=== PATIENT | female | born 1970 | race Caucasian/White ===

== ENCOUNTER 2020-09-26 12:01 | Emergency (ER) | payer SELFPAY ==
[~2020-09-26] VITALS: Ht 154.9 cm; Wt 61.2 kg
--- NOTE | 2020-09-26 12:02 | NUR ---
BIBA TAKEN TO BED 4
[2020-09-26 12:05] VITALS: BP 124/91
[2020-09-26] MEDS ORDERED: NACL 0.9% 1,000 ML IV ONE (12:20)
[2020-09-26] MEDS ORDERED: ONDANSETRON 4 MG/2 ML VIAL IVP ONE (12:20)
--- NOTE | 2020-09-26 12:30 | NUR ---
50 YEAR OLD FEMALE COMPLAINS OF NAUSEA, VOMITTING X 22 DAYS. PER PT HER DOCTOR GAVE HER ZOFRAN BUT IT HAS NOT BEEN HELPING REDUCE VOMITTING. PT STATES SHE VOMITTED EARLIER TODAY. PT ALSO COMPLAINS OF LEFT SIDED ABDOMINAL PAIN. PT DENIES BLOOD IN VOMIT, DENIES DIARRHEA. PT AOX4, BREATHING EVEN AND UNLABORED, SKIN WARM AND DRY. BED IN LOWEST POSITION, LOCKED, BED RAIL UPX1. PMH - DENIES ALLERGIES - NKA
[2020-09-26 12:40] LABS: BASOPHILS # (AUTO) 0.1 K/uL (0.00-0.22); BASOPHILS % (AUTO) 0.8 % (0.0-2.0); EOSINOPHILS % (AUTO) 0.4 % (0.0-4.0); HEMATOCRIT 43.9 % (36-48); HEMOGLOBIN 15.3 g/dL (12.0-16.0); LYMPHOCYTES # (AUTO) 1.6 K/uL (2.5-16.5); LYMPHOCYTES % (AUTO) 22.3 % (20.5-51.1); MEAN CORPUSCULAR HEMOGLOBIN 29 pg (27-31); MEAN CORPUSCULAR HGB CONC 35 g/dL (33-37); MEAN CORPUSCULAR VOLUME 83.5 fL (80-94); MONOCYTES # (AUTO) 0.3 K/uL (0.8-1.0); MONOCYTES % (AUTO) 3.6 % (1.7-9.3); NEUTROPHILS # (AUTO) 5.2 K/uL (1.8-7.7); NEUTROPHILS % (AUTO) 72.9 % (42.2-75.2); PLATELET COUNT (AUTO) 242 K/uL (140-450); RED BLOOD CELL COUNT(AUTO) 5.26 MIL/uL (4.20-5.40); RED CELL DISTRIBUTION WIDTH 13.1 % (11.6-13.7); WHITE BLOOD COUNT (AUTO) 7.1 K/uL (4.8-10.8)
[2020-09-26 13:04] LABS: ALBUMIN 3.8 g/dL (3.4-5.0); ANION GAP 19.6 (8-16); CARBON DIOXIDE 18.8 mmol/L (21-32); CREATININE 1.2 mg/dL (0.6-1.3); POTASSIUM 3.4 mmol/L (3.5-5.1); TOTAL BILIRUBIN 0.7 mg/dL (0.0-1.0)
[2020-09-26] MEDS ORDERED: LORazepam 2 MG/ML VIAL IVP ONE (13:10)
--- NOTE | 2020-09-26 13:21 | NUR ---
DARIUS MADE AWARE PT STATES SHE HAD HYSTERECTOMY FOR URINE
[2020-09-26 13:34] LABS: APPEARANCE,URINE CLOUDY (CLEAR); BILIRUBIN,URINE 1+ (NEGATIVE); BLOOD, URINE TRACE-I (NEGATIVE); COLOR,URINE YELLOW (YELLOW); LEUKOCYTE ESTERASE ,URINE NEGATIVE (NEGATIVE); NITRITE, URINE NEGATIVE (NEGATIVE); UGLUCOSE NEGATIVE (NEGATIVE)
[2020-09-26 13:44] LABS: CALCIUM OXALATE CRYSTALS,UR 0-10 /HPF (None Seen); WBC,URINE 0-5 /HPF (0-5)
--- NOTE | 2020-09-26 13:48 | NUR ---
PT ALERT AND AWAKE, BREATHING EVEN AND UNLABORED. NO DISTRESS NOTED.
--- NOTE | 2020-09-26 14:52 | NUR ---
PT ALERT AND AWAKE, BREATHING EVEN AND UNLABORED. NO DISTRESS NOTED.
--- NOTE | 2020-09-26 15:10 | NUR ---
Patient discharged with v/s stable. Written and verbal after care instructions about nausea and vomitting given and explained. Patient alert, oriented and verbalized understanding of instructions. Ambulatory with steady gait. All questions addressed prior to discharge. ID band removed. Patient advised to follow up with PMD. Rx of zofran and bentyl given. Patient educated on indication of medication including possible reaction and side effects. Opportunity to ask questions provided and answered.
[2020-09-26 15:16] VITALS: BP 108/72
== END 2020-09-26 15:10 | disposition home or self-care (01) ==
LOC: MED 12:07
DX: R11.2 Nausea with vomiting, unspecified (principal); E11.9 Type 2 diabetes mellitus without complications; F41.9 Anxiety disorder, unspecified; Z90.49 Acquired absence of other specified parts of digestive tract; Z90.711 Acquired absence of uterus with remaining cervical stump; Z79.899 Other long term (current) drug therapy; Z88.1 Allergy status to other antibiotic agents; Z88.8 Allergy status to other drugs, medicaments and biological substances
CPT/HCPCS: 36415; 74176; 80053; 81001; 83690; 85025; 87086; 96361; 96374; 96375; 99284; J2060; J2405; J7030

== ENCOUNTER 2020-10-02 05:45 | Emergency (ER) | payer SELFPAY ==
--- NOTE | 2020-10-02 05:58 | NUR ---
PT TAKEN TO BED 11
--- NOTE | 2020-10-02 06:00 | NUR ---
50 Y/O FEMALE BIB SELF WITH C/O N/V/D X1 DAY POST TAKING ALLOE VERA REPORTED BY PT FOR CONSTIPATION. REPORTS VOMITING AND DIARRHEA X 30 TIMES ALLTOGETHER. STATES SHE HAS BEEN HAVING THIS ISSUE X 3 MONTHS AGO, SHE ALSO REPORTS COMING IN THIS PAST TUESDAY FOR VOMITING. DENIED HAVING ANY FEVER, SOB OR COUGH. ABD WAS FLAT SOFT AND NON-TENDER. PT PLACED ON GUEST ROOM INSPECTOR, PULSE OXYMETRY, BED LOCKED AND IN LOWEST POSITION. MEDHX: HTN, DM TYPE 2, ASTHMA & ANXIETY ALLX: CEPHALEXIN & CORTISONE
--- NOTE | 2020-10-02 06:00 | NUR ---
Note undone in EDM - 10/02/20 at 0701 by JOHNY 50 Y/O FEMALE BIB SELF WITH C/O N/V/D X1 DAY POST TAKING ALLOE VERA REPORTED BY PT FOR CONSTIPATION. REPORTS VOMITING AND DIARRHEA X 30 TIMES ALLTOGETHER. STATES SHE HAS BEEN HAVING THIS ISSUE X 3 MONTHS AGO, SHE ALSO REPORTS COMING IN THIS PAST TUESDAY FOR VOMITING. DENIED HAVING ANY FEVER, SOB OR COUGH. ABD WAS FLAT SOFT AND NON-TENDER. PT PLACED ON BONSAI TENDER, PULSE OXYMETRY, BED LOCKED AND IN LOWEST POSITION. MEDHX: HTN, DM TYPE 2, ASTHMA & ANXIETY ALLX: PCN
--- NOTE | 2020-10-02 06:00 | NUR ---
IV SITE ESTABLISHED TO [facility] 22 SITE PATENT.
--- NOTE | 2020-10-02 06:10 | NUR ---
Dr. Sood examining patient.
[2020-10-02] MEDS ORDERED: ONDANSETRON 4 MG/2 ML VIAL ONE (06:38)
[2020-10-02] MEDS ORDERED: LORazepam 2 MG/ML VIAL ONE (06:50)
--- NOTE | 2020-10-02 06:55 | NUR ---
PT O2 SAT DECLINING FROM 98% ON RA TO 90%, PT WAS PLACED ON 2 L VIA NC. PT STATES, "I STOP BREATHING WHILE I FALL ASLEEP".
[2020-10-02 06:57] LABS: HEMATOCRIT 46.6 % (36-48); HEMOGLOBIN 16.1 g/dL (12.0-16.0); MEAN CORPUSCULAR HEMOGLOBIN 29 pg (27-31); MEAN CORPUSCULAR HGB CONC 35 g/dL (33-37); MEAN CORPUSCULAR VOLUME 84.1 fL (80-94); PLATELET COUNT (AUTO) 251 K/uL (140-450); RED BLOOD CELL COUNT(AUTO) 5.54 MIL/uL (4.20-5.40); RED CELL DISTRIBUTION WIDTH 13.7 % (11.6-13.7); WHITE BLOOD COUNT (AUTO) 15.4 K/uL (4.8-10.8)
[2020-10-02 06:58] LABS: BASOPHILS # (AUTO) 0.1 K/uL (0.00-0.22); BASOPHILS % (AUTO) 0.4 % (0.0-2.0); EOSINOPHILS % (AUTO) 0.2 % (0.0-4.0); LYMPHOCYTES # (AUTO) 1.3 K/uL (2.5-16.5); LYMPHOCYTES % (AUTO) 8.6 % (20.5-51.1); MONOCYTES # (AUTO) 0.5 K/uL (0.8-1.0); MONOCYTES % (AUTO) 3.5 % (1.7-9.3); NEUTROPHILS # (AUTO) 13.4 K/uL (1.8-7.7); NEUTROPHILS % (AUTO) 87.3 % (42.2-75.2)
--- NOTE | 2020-10-02 07:00 | NUR ---
PT UNABLE TO PROVIDE URINE AT THIS TIME STATES, "I DONT FEEL THE URGE TO GO TO THE BATHROOM AT THIS TIME".
--- NOTE | 2020-10-02 07:00 | NUR ---
REPORT RECEIVED FROM DOMINIK RAIN FOR CONTINUITY OF CARE.
--- NOTE | 2020-10-02 07:08 | NUR ---
ER MD DR. MOURA RE-EVALUATING PT AT BEDSIDE.
--- NOTE | 2020-10-02 07:09 | NUR ---
REPORT GIVEN TO ANITA RAIN FOR CONTINUITY OF CARE.
--- NOTE | 2020-10-02 07:30 | NUR ---
PT UNABLE TO PROVIDE URINE AT THIS TIME STATES, "I DONT FEEL THE URGE TO GO TO THE BATHROOM AT THIS TIME".
--- NOTE | 2020-10-02 07:35 | NUR ---
PT REPORTS DECREASED NAUSEA, LAST EMESIS EPISODE AT 0615 AM, IV 0.9%NS BOLUS INFUSING AT THIS TIME. PT POSITIONED FOR COMFORT, BED LOCKED IN LOWEST POSITION, NO SIGNS OF DISTRESS NOTED.
[2020-10-02 08:20] LABS: CARBON DIOXIDE 20.7 mmol/L (21-32); CREATININE 1.2 mg/dL (0.6-1.3); POTASSIUM 3.7 mmol/L (3.5-5.1)
[2020-10-02 08:21] LABS: ALBUMIN 4.4 g/dL (3.4-5.0)
--- NOTE | 2020-10-02 09:28 | NUR ---
Patient discharged with v/s stable. Written and verbal after care instructions given and explained. Patient alert, oriented and verbalized understanding of instructions. Ambulatory with steady gait. All questions addressed prior to discharge. ID band removed. Patient advised to follow up with PMD. Rx of ZOFRAN, PHENERGAN given. Patient educated on indication of medication including possible reaction and side effects. Opportunity to ask questions provided and answered.
[2020-10-02 09:29] VITALS: BP 132/72
== END 2020-10-02 09:28 | disposition home or self-care (01) ==
LOC: MED 05:45
DX: K52.9 Noninfective gastroenteritis and colitis, unspecified (principal); R19.7 Diarrhea, unspecified; E86.0 Dehydration; F41.9 Anxiety disorder, unspecified; E11.9 Type 2 diabetes mellitus without complications; I10 Essential (primary) hypertension; J45.909 Unspecified asthma, uncomplicated
CPT/HCPCS: 36415; 80053; 81002; 83690; 85025; 99283; J2060; J2405

== ENCOUNTER 2020-12-23 19:04 | Emergency (ER) | payer OTHER ==
[~2020-12-23] VITALS: Ht 157.5 cm; Wt 56.2 kg
[2020-12-23 19:08] VITALS: BP 178/77
--- NOTE | 2020-12-23 19:20 | NUR ---
50 YR OLD FEMALE PRESENTED TO THE ER WITH CC OF HIGH BLOOD PRESSURE. PT STATES HIGH BLOOD PRESSURE STARTED 5PM TODAY AFTER SMOKING 1 CIGARETTE. PT STATES HAVING NAUSEA AFTER SMOKING AND STATED VOMITED WITH NO REDNESS AND NO DISCOLORATION. PT STATES NO VISION PROBLEMS AND NO RINGING OF EARS. PT HEART SOUNDS WNL. PT STATES CURRENTLY HAS NAUSEA. PT WAS PROVIDED EMESIS BAG. PT DENIES OTHER MEDICAL COMPLAINTS. BED LOCKED IN LOWEST POSITION. WILL CONTINUE TO MONITOR. HISTORY- ANXIETY, ASTHMA, DIABETES, HTN ALLERGIES- CORTISONE, REGLAN
--- NOTE | 2020-12-23 19:25 | NUR ---
PATIENT AMBULATED TO BED 8.
--- NOTE | 2020-12-23 19:38 | NUR ---
Pt actively vomitting, emesis bag provided and ERMD made aware.
--- NOTE | 2020-12-23 19:40 | NUR ---
Pt ambulated to restroom w/ steady gait.
[2020-12-23] MEDS ORDERED: ONDANSETRON 4 MG/2 ML VIAL IVP ONE (20:00)
--- NOTE | 2020-12-23 20:08 | NUR ---
ERMD AT BEDSIDE FOR MEDICAL EVALUATION.
[2020-12-23] MEDS ORDERED: FAMOTIDINE 20 MG/2 ML VIAL IVP ONE (20:20)
[2020-12-23] MEDS ORDERED: HALOPERIDOL 5 MG TAB PO SCH (20:20)
--- NOTE | 2020-12-23 20:35 | NUR ---
Blood labs & urine sample collected and handed to Harriett Israel tech.
[2020-12-23 20:45] LABS: APPEARANCE,URINE CLEAR (CLEAR); BILIRUBIN,URINE NEGATIVE (NEGATIVE); BLOOD, URINE NEGATIVE (NEGATIVE); COLOR,URINE YELLOW (YELLOW); LEUKOCYTE ESTERASE ,URINE TRACE (NEGATIVE); NITRITE, URINE NEGATIVE (NEGATIVE); UGLUCOSE NEGATIVE (NEGATIVE)
[2020-12-23 20:45] LABS: BASOPHILS % (AUTO) 0.6 % (0.0-2.0); EOSINOPHILS # (AUTO) 0.1 K/uL (0-0.4); EOSINOPHILS % (AUTO) 1.4 % (0.0-4.0); HEMATOCRIT 41.6 % (36-48); HEMOGLOBIN 14.3 g/dL (12.0-16.0); LYMPHOCYTES % (AUTO) 25.3 % (20.5-51.1); MEAN CORPUSCULAR HEMOGLOBIN 30 pg (27-31); MEAN CORPUSCULAR HGB CONC 34 g/dL (33-37); MEAN CORPUSCULAR VOLUME 86.1 fL (80-94); MONOCYTES # (AUTO) 0.4 K/uL (0.8-1.0); MONOCYTES % (AUTO) 4.5 % (1.7-9.3); NEUTROPHILS # (AUTO) 5.4 K/uL (1.8-7.7); NEUTROPHILS % (AUTO) 68.2 % (42.2-75.2); PLATELET COUNT (AUTO) 217 K/uL (140-450); RED BLOOD CELL COUNT(AUTO) 4.83 MIL/uL (4.20-5.40); RED CELL DISTRIBUTION WIDTH 14.1 % (11.6-13.7); WHITE BLOOD COUNT (AUTO) 7.8 K/uL (4.8-10.8)
[2020-12-23 20:55] LABS: ALBUMIN 4.3 g/dL (3.4-5.0); ANION GAP 13.5 (8-16); CARBON DIOXIDE 26.9 mmol/L (21-32); CREATININE 0.8 mg/dL (0.6-1.3); POTASSIUM 3.4 mmol/L (3.5-5.1); TOTAL BILIRUBIN 0.6 mg/dL (0.0-1.0)
[2020-12-23] MEDS ORDERED: HALOPERIDOL IM 5 MG/ML VIAL IVP ONE (20:55)
[2020-12-23 21:06] LABS: RBC,URINE 0-5 /HPF (0-5)
--- NOTE | 2020-12-23 22:41 | NUR ---
PT FOUND ASLEEP IN SEMI-ORR'S POSITION IN BED. PT HAS VISIBLE RISE AND FALL UPON RESPIRATION. NO SIGNS OF DISTRESS. BED LOCKED IN LOWEST POSITION. WILL CONTINUE TO MONITOR.
[2020-12-24 00:06] VITALS: BP 137/62
--- NOTE | 2020-12-24 00:06 | NUR ---
IV removed, catheter intact and site benign. Applied folded 4x4 gauze and tape to stop bleeding.
== END 2020-12-24 00:06 | disposition home or self-care (01) ==
LOC: MED 19:04
DX: R11.2 Nausea with vomiting, unspecified (principal); I10 Essential (primary) hypertension; J45.909 Unspecified asthma, uncomplicated; E11.9 Type 2 diabetes mellitus without complications; Z88.1 Allergy status to other antibiotic agents; Z88.5 Allergy status to narcotic agent
CPT/HCPCS: 36415; 80053; 81001; 81025; 83690; 85025; 87086; 93005; 96374; 96375; 99284; J1630; J2405; J3490

== ENCOUNTER 2021-02-10 07:36 | Emergency (ER) | payer OTHER ==
[~2021-02-10] VITALS: Ht 157.5 cm; Wt 59.0 kg
[2021-02-10 07:39] VITALS: BP 140/102
--- NOTE | 2021-02-10 07:40 | NUR ---
50 Y/O FEMALE BIB SELF C/O EPIGASTRIC PAIN X1 WEEK. PT STATES PAIN ACCOMPANIED BY NAUSEA/VOMITING, DIZZINESS, SWEATING, SOME SOB SPO2 100% RA. PT STATES PAIN 6/10, FEELS "LIKE THERE IS SO MUCH AIR TRAPPED, RADIATES TO CHEST, UPPER BACK, AND JAW. PT ON MONITOR; HR 53, BP 145/86. AO4, BREATHING EVEN AND UNLABORED, SKIN WARM AND DRY. BED IN LOWST POSITION, LOCKED, X1 SIDERAIL UP. PMHX - DM, HTN, ASTHMA,HYSTERECTOMY, CHOLECYSTECTOMY, TUBALIGATION, APPENDECTOMY ALLERGY - CEPHALEXIN AND CORTISONE
--- NOTE | 2021-02-10 07:41 | NUR ---
PT STATES SYMPTOMS BEGAN AFETR BEGINNING NEW MEDICATION JENUVIA.
[2021-02-10] MEDS ORDERED: DICYCLOMINE HCL LIQUID 20 MG, ALUMINUM HYD/MAG/SIMETHICONE 30 ML, LIDOCAINE VISCOUS 2% ... PO ONE ×3 (07:50)
--- NOTE | 2021-02-10 07:50 | NUR ---
PATIENT AMULATED TO BED 4. HANDED ON URINE CUP.
[2021-02-10] MEDS ORDERED: ALUMINUM HYD/MAG/SIMETHICONE 30 ML UDC ONE ×2 (07:52→07:56)
[2021-02-10] MEDS ORDERED: LIDOCAINE VISCOUS 2% 20 ML UDC ONE (07:52)
[2021-02-10] MEDS ORDERED: DICYCLOMINE HCL LIQUID 10 MG/5 ML UDC ONE (07:53)
[2021-02-10] MEDS ORDERED: OMEP40EC24 PO (08:05)
--- NOTE | 2021-02-10 08:20 | NUR ---
Dr. Moy is evaluating the patient at bedside.
[2021-02-10] MEDS ORDERED: ONDANSETRON 4 MG TAB ONE (08:24)
[2021-02-10] MEDS ORDERED: ONDANSETRON 4 MG ODT PO ONE (08:25)
[2021-02-10] MEDS ORDERED: ONDA8TAB87 PO (08:26)
--- NOTE | 2021-02-10 08:26 | NUR ---
PT IN ROOM VOMITING, IN DISTRESS. ERMD MADE AWARE.
--- NOTE | 2021-02-10 08:35 | NUR ---
BP 199/168. DARIUS RAMOS MADE AWARE
--- NOTE | 2021-02-10 09:02 | NUR ---
PT STATES SHE FEELS BETTER, STILL SOMEWHAT NAUSEOUS. IN ROOM SITTING, AWAKE AND ALERT, BREATHING EVEN AND UNLABORED. BP 162/79, HR 51. WILL CONTINUE TO MONITOR.
[2021-02-10 09:27] VITALS: BP 140/102
--- NOTE | 2021-02-10 09:28 | NUR ---
Patient discharged with v/s stable. Written and verbal after care instructions ABOUT GERD given and explained IN SERBIAN. Patient alert, oriented and verbalized understanding of instructions. Ambulatory with steady gait. All questions addressed prior to discharge. ID band removed. Patient advised to follow up with PMD. Rx of OMEPRAOLE AND ONDANSETRON given. Patient educated on indication of medication including possible reaction and side effects. Opportunity to ask questions provided and answered.
[2021-02-11] MEDS ORDERED: ONDANSETRON 4 MG ODT PO ONE (14:05)
[2021-02-11] MEDS ORDERED: DICYCLOMINE HCL LIQUID 20 MG, ALUMINUM HYD/MAG/SIMETHICONE 30 ML, LIDOCAINE VISCOUS 2% ... PO ONE ×3 (14:05)
== END 2021-02-10 09:28 | disposition home or self-care (01) ==
LOC: MED 07:36
DX: R07.89 Other chest pain (principal); R10.13 Epigastric pain; R11.0 Nausea; R06.02 Shortness of breath; J45.909 Unspecified asthma, uncomplicated; E11.9 Type 2 diabetes mellitus without complications; I10 Essential (primary) hypertension; Z90.49 Acquired absence of other specified parts of digestive tract; Z98.890 Other specified postprocedural states; Z90.710 Acquired absence of both cervix and uterus; Z79.899 Other long term (current) drug therapy; Z88.1 Allergy status to other antibiotic agents; Z88.8 Allergy status to other drugs, medicaments and biological substances
CPT/HCPCS: 81002; 93005; 99283; Q0162; 81025

== ENCOUNTER 2021-03-09 07:41 | Emergency (ER) | payer OTHER ==
[~2021-03-09] VITALS: Ht 157.5 cm; Wt 61.0 kg
[~2021-03-09 07:41] MED LIST: OMEP40EC24 PO; ONDA8TAB87 PO
[2021-03-09 07:47] VITALS: BP 133/88
--- NOTE | 2021-03-09 07:58 | NUR ---
Dr. Cuellar is evaluating the patient at bedside.
[2021-03-09] MEDS ORDERED: ASPIRIN 81 MG TAB.CHEW PO ONE (08:05)
--- NOTE | 2021-03-09 08:05 | NUR ---
50 Y/O F BIB SELF FROM HOME, PATIENT PRESENTS TO ED WITH SHARP L CHEST PAIN THAT RADIATES TO L ARM. PT STATES SHE WENT TO [place] ON TUESDAY FOR A MEDICAL APPOINTMENT AND WAS GIVEN NIFEDIPINE FOR THE PAIN, NO RELIEF AND HAS BEEN HAVING PAIN THAT COMES AND GOES SINCE THEN. PT STATES SHE FEELS NAUSEOUS, SOB, AND FATIGUE. "I FEEL LIKE MY HEART IS SHAKING" NONE PRODUCTIVE COUGH, HAS NOT TAKEN OTHER MEDICATIONS FOR PAIN TODAY; SKIN IS PINK/WARM/DRY; AAOX4 WITH EVEN AND STEADY GAIT; LUNGS CLEAR BL; HR EVEN AND REGULAR; PT DENIES ANY FEVERS AT THIS TIME; PATIENT STATES PAIN OF 8/10 AT THIS TIME; VSS; PATIENT POSITIONED FOR COMFORT; HOB ELEVATED; BEDRAILS UP X2; BED DOWN. ER MD MADE AWARE OF PT STATUS. PMH: HTN, DM2, ASTHMA, GERD ALLERGY: CEPHALEXIN, CORTISONE
[2021-03-09 08:29] LABS: BASOPHILS # (AUTO) 0.1 K/uL (0.00-0.22); BASOPHILS % (AUTO) 0.7 % (0.0-2.0); EOSINOPHILS % (AUTO) 13.3 % (0.0-4.0); HEMATOCRIT 42.7 % (36-48); HEMOGLOBIN 14.8 g/dL (12.0-16.0); LYMPHOCYTES # (AUTO) 2.1 K/uL (2.5-16.5); LYMPHOCYTES % (AUTO) 27.2 % (20.5-51.1); MEAN CORPUSCULAR HEMOGLOBIN 29 pg (27-31); MEAN CORPUSCULAR HGB CONC 35 g/dL (33-37); MEAN CORPUSCULAR VOLUME 84.5 fL (80-94); MONOCYTES # (AUTO) 0.3 K/uL (0.8-1.0); NEUTROPHILS # (AUTO) 4.3 K/uL (1.8-7.7); NEUTROPHILS % (AUTO) 54.8 % (42.2-75.2); PLATELET COUNT (AUTO) 234 K/uL (140-450); RED BLOOD CELL COUNT(AUTO) 5.05 MIL/uL (4.20-5.40); RED CELL DISTRIBUTION WIDTH 13.1 % (11.6-13.7); WHITE BLOOD COUNT (AUTO) 7.9 K/uL (4.8-10.8)
--- NOTE | 2021-03-09 08:42 | NUR ---
voip network technician at bedside.
[2021-03-09] MEDS ORDERED: SITA50TA3 PO (09:34)
[2021-03-09] MEDS ORDERED: IRBE300T26 PO (09:34)
[2021-03-09] MEDS ORDERED: AMLO10TA PO (09:34)
--- NOTE | 2021-03-09 09:36 | NUR ---
JUAN TOLBERT SWABBED AND SENT TO LAB.
[2021-03-09 11:54] LABS: ANION GAP 12.2 (8-16); CARBON DIOXIDE 27.2 mmol/L (21-32); POTASSIUM 3.4 mmol/L (3.5-5.1)
[2021-03-09 11:55] LABS: ALBUMIN 3.7 g/dL (3.4-5.0); CREATININE 0.7 mg/dL (0.6-1.3); TOTAL BILIRUBIN 0.7 mg/dL (0.0-1.0)
--- NOTE | 2021-03-09 13:22 | NUR ---
CONSENT OBTAINED FOR TRANSPORT TO OTHER HOSPITAL
--- NOTE | 2021-03-09 14:22 | NUR ---
Patient to be transferred to [facility]. Is being transferred due to HIGHER LEVEL OF CARE. Receiving facility has accepting physician and available space. ER physician has signed transfer form. Patient or responsible constitution party has agreed to transfer and signed form. Patient belongings inventoried and will be sent with patient. Copy of nursing notes, lab reports, EKG, Physicians Orders and X-rays to be sent with patient. Report called to EDWAR RAIN at receiving facility. [facility] ambulance service has been called for transfer. ETA is [phone].
--- NOTE | 2021-03-09 14:29 | NUR ---
PT STATES SHE HAS NO PAIN AT THIS TIME. SHE HAS CHEST PAIN ON EXERTION WHEN SHE GETS UP TO WALK TO BATHROOM.
--- NOTE | 2021-03-09 15:20 | NUR ---
[facility] AT BEDSIDE FOR FUEL CELL TECHNICIAN TO [facility].
[2021-03-09 15:21] VITALS: BP 130/64
[2021-03-09] MEDS ORDERED: KETOROLAC 30 MG/ML VIAL IVP ONE (15:25)
== END 2021-03-09 15:20 ==
LOC: MED 07:41
DX: R07.9 Chest pain, unspecified (principal); E11.9 Type 2 diabetes mellitus without complications; I10 Essential (primary) hypertension; K29.70 Gastritis, unspecified, without bleeding; J45.909 Unspecified asthma, uncomplicated; F17.210 Nicotine dependence, cigarettes, uncomplicated; Z88.1 Allergy status to other antibiotic agents; Z88.8 Allergy status to other drugs, medicaments and biological substances; Z90.49 Acquired absence of other specified parts of digestive tract; Z20.822 Contact with and (suspected) exposure to COVID-19
CPT/HCPCS: 36415; 71045; 80053; 83690; 83880; 84484; 85025; 87426; 93005; 96374; 99285; J1885

== ENCOUNTER 2021-04-01 14:57 | Emergency (ER) | payer MEDICAID, OTHER ==
[~2021-04-01] VITALS: Ht 157.5 cm; Wt 61.2 kg
[~2021-04-01 14:57] MED LIST changes: +AMLO10TA PO; +IRBE300T26 PO; -OMEP40EC24 PO; -ONDA8TAB87 PO; +SITA50TA3 PO
[2021-04-01 15:00] VITALS: BP 165/74
--- NOTE | 2021-04-01 15:02 | NUR ---
Ambulated to bed 3
--- NOTE | 2021-04-01 15:05 | NUR ---
C/O EPIGASTRIC PAIN SINCE 99 THIS MORNING RADIATING TO HER BACK WITH N/V, DENIES DIARRHEA HX DM, HTN
[2021-04-01] MEDS ORDERED: FAMOTIDINE 20 MG/2 ML VIAL IVP ONE (15:10)
[2021-04-01] MEDS ORDERED: ALUMINUM HYD/MAG/SIMETHICONE 30 ML UDC PO ONE (15:10)
[2021-04-01] MEDS ORDERED: DICYCLOMINE 10 MG CAP PO ONE (15:10)
--- NOTE | 2021-04-01 15:20 | NUR ---
Dr. Luis at the bedside evaluating patient.
[2021-04-01 15:48] LABS: BASOPHILS # (AUTO) 0.2 K/uL (0.00-0.22); BASOPHILS % (AUTO) 2.5 % (0.0-2.0); EOSINOPHILS # (AUTO) 1.3 K/uL (0-0.4); EOSINOPHILS % (AUTO) 13.8 % (0.0-4.0); HEMATOCRIT 42.1 % (36-48); HEMOGLOBIN 14.6 g/dL (12.0-16.0); LYMPHOCYTES # (AUTO) 2.2 K/uL (2.5-16.5); LYMPHOCYTES % (AUTO) 22.5 % (20.5-51.1); MEAN CORPUSCULAR HEMOGLOBIN 29 pg (27-31); MEAN CORPUSCULAR HGB CONC 35 g/dL (33-37); MEAN CORPUSCULAR VOLUME 84.2 fL (80-94); MONOCYTES # (AUTO) 0.3 K/uL (0.8-1.0); MONOCYTES % (AUTO) 2.7 % (1.7-9.3); NEUTROPHILS # (AUTO) 5.6 K/uL (1.8-7.7); NEUTROPHILS % (AUTO) 58.5 % (42.2-75.2); PLATELET COUNT (AUTO) 239 K/uL (140-450); WHITE BLOOD COUNT (AUTO) 9.7 K/uL (4.8-10.8)
--- NOTE | 2021-04-01 16:00 | NUR ---
Patient ambulated to the restroom with a steady gait to collect urine specimen.
[2021-04-01 16:02] LABS: ALBUMIN 3.2 g/dL (3.4-5.0); ANION GAP 12.9 (8-16); CREATININE 0.6 mg/dL (0.6-1.3); TOTAL BILIRUBIN 0.5 mg/dL (0.0-1.0)
[2021-04-01 16:06] LABS: POTASSIUM 2.9 mmol/L (3.5-5.1)
--- NOTE | 2021-04-01 16:07 | NUR ---
CRITICAL LAB VALUE: POTASSIUM 2.9. DR DOBSON MADE AWARE
[2021-04-01 16:17] LABS: APPEARANCE,URINE CLEAR (CLEAR); BILIRUBIN,URINE NEGATIVE (NEGATIVE); BLOOD, URINE NEGATIVE (NEGATIVE); COLOR,URINE YELLOW (YELLOW); LEUKOCYTE ESTERASE ,URINE NEGATIVE (NEGATIVE); NITRITE, URINE NEGATIVE (NEGATIVE); UGLUCOSE NEGATIVE (NEGATIVE)
--- NOTE | 2021-04-01 16:52 | NUR ---
patient resting in bed comfortably, respirations even and unlabored. bed locked and in the lowest position; vss; call light within reach.
--- NOTE | 2021-04-01 17:14 | NUR ---
Patient ambulated to the restroom with a steady gait.
--- NOTE | 2021-04-01 17:22 | NUR ---
Patient picked up by tech and taken to CT via wheelchair.
--- NOTE | 2021-04-01 17:46 | NUR ---
patient resting in bed comfortably, respirations even and unlabored. bed locked and in the lowest position; vss; call light within reach.
--- NOTE | 2021-04-01 19:04 | NUR ---
Dr. Luis aware of patient's vital signs. Per Dr. Luis, okay for patient to take her home BP meds. Patient states that she has had an appendectomy, cholecystectomy and hysterectomy.
--- NOTE | 2021-04-01 19:09 | NUR ---
Report given to KOFFI Austin.
[2021-04-01] MEDS ORDERED: KCL 20 MEQ/WATER INJ PREMIX 100 ML IV ONE (19:10)
[2021-04-01] MEDS ORDERED: METOCLOPRAMIDE 10 MG/2 ML INJ VIAL IVP ONE (19:10)
--- NOTE | 2021-04-01 19:10 | NUR ---
REPORT RECIEVED FROM KOFFI MURPHY FOR CHANGE OF SHIFT. PATIENT NOTED TO BED VOMITING, ERMD MADE AWARE. AWAITING NEW ORDERS. PATIENT FAILED PO CHALLENGE OF WATER.
[2021-04-01] MEDS ORDERED: LORazepam 0.5 MG TAB PO ONE (19:40)
--- NOTE | 2021-04-01 19:41 | NUR ---
PATIENT NOTED TO BE RESTING IN BED, EYES CLOSED, NO APPARENT DISTRESS. ERMD MADE AWARE. NEW ORDERS TO HOLD ATIVAN FOR NOW.
[2021-04-01 21:37] VITALS: BP 151/67
--- NOTE | 2021-04-01 21:38 | NUR ---
PO TRUNG PER ERMD. PATIENT TOLERATED WATER WITHOUT N/V AT THIS TIME.
[2021-04-01] MEDS ORDERED: [UNRECOGNIZED DRUG - CODE] PO (22:00)
--- NOTE | 2021-04-01 22:10 | NUR ---
d/c with VSS. d/c education given. opportunity to ask questions given and answered. rx of pepcid given. written copy of d/c education given. encouraged pt to follow up with PMD.
== END 2021-04-01 22:10 | disposition home or self-care (01) ==
LOC: MED 14:57
DX: K29.70 Gastritis, unspecified, without bleeding (principal); E87.6 Hypokalemia; J45.909 Unspecified asthma, uncomplicated; E11.9 Type 2 diabetes mellitus without complications; K21.9 Gastro-esophageal reflux disease without esophagitis; I10 Essential (primary) hypertension; Z90.710 Acquired absence of both cervix and uterus; Z88.1 Allergy status to other antibiotic agents; Z88.8 Allergy status to other drugs, medicaments and biological substances; Z79.899 Other long term (current) drug therapy
CPT/HCPCS: 36415; 71275; 74174; 80053; 81003; 82150; 83605; 83690; 84484; 85025; 85379; 96365; 96375; 99285; J2765; J3480; J3490; Q9967

== ENCOUNTER 2021-06-25 01:16 | Emergency (ER) | payer MEDICAID ==
[~2021-06-25] VITALS: Ht 157.5 cm; Wt 65.3 kg
[~2021-06-25 01:16] MED LIST changes: +[UNRECOGNIZED DRUG - CODE] PO
[2021-06-25 01:18] VITALS: BP 183/104
--- NOTE | 2021-06-25 01:26 | NUR ---
TO LOBBY FOLLOWING TRIAGE
--- NOTE | 2021-06-25 03:51 | NUR ---
PT TAKEN TO BED 4
--- NOTE | 2021-06-25 04:00 | NUR ---
51 YO F BIB SELF WITH C/C OF MOLAR PAIN 05/23 SINCE MARCH ( 2ND MOLAR ON L SIDE TOP). PT STATES EATING MAKES IT WORSE AND IBUPROFEN HELPS A LITTLE WITH PAIN. PAIN IS SHARP, COMES AND GOES. TOOK 800MG OF IBUPROFEN AT 11PM. HX: DM2 AND GASTRITIS RX: JANUVIA ALLERG: CORTISONE AND METFORMIN
--- NOTE | 2021-06-25 04:10 | NUR ---
PT STATED SHE WOULD LIKE TO TAKE HER LOSARTAN PILL FOR HIGH BP. PROVIDED WITH WATER.
[2021-06-25] MEDS ORDERED: LIDOCAINE MPF 1% 5 ML ONE (04:53)
--- NOTE | 2021-06-25 04:57 | NUR ---
Dr. Ruano examining patient.
[2021-06-25] MEDS ORDERED: LIDOCAINE MPF 1% 10 MG/ML VIAL INJ ONE (05:05)
--- NOTE | 2021-06-25 05:05 | NUR ---
LIDOCAINE GIVEN BY ERMD DURING PROCEDURE.
[2021-06-25] MEDS ORDERED: ACET-10509 PO (05:17)
[2021-06-25 05:21] VITALS: BP 165/81
--- NOTE | 2021-06-25 05:21 | NUR ---
Patient discharged with v/s stable. Written and verbal after care instructions given and explained. Patient alert, oriented and verbalized understanding of instructions. Ambulatory with steady gait. All questions addressed prior to discharge. ID band removed. Patient advised to follow up with PMD. Rx of TYLENOL EXTRA STRENGTH given. Patient educated on indication of medication including possible reaction and side effects. Opportunity to ask questions provided and answered.
== END 2021-06-25 05:21 | disposition home or self-care (01) ==
LOC: MED 01:16
DX: K08.89 Other specified disorders of teeth and supporting structures (principal); J45.909 Unspecified asthma, uncomplicated; E11.9 Type 2 diabetes mellitus without complications; K21.9 Gastro-esophageal reflux disease without esophagitis; I10 Essential (primary) hypertension; Z79.899 Other long term (current) drug therapy; Z88.8 Allergy status to other drugs, medicaments and biological substances; Z88.1 Allergy status to other antibiotic agents; Z88.5 Allergy status to narcotic agent
CPT/HCPCS: 99282; J2001

== ENCOUNTER 2021-10-10 14:46 | Emergency (ER) | payer MEDICAID ==
[~2021-10-10] VITALS: Ht 157.5 cm; Wt 70.3 kg
[~2021-10-10 14:46] MED LIST changes: +ACET-10509 PO
[2021-10-10 14:50] VITALS: BP 164/75
--- NOTE | 2021-10-10 14:53 | NUR ---
IDALMIS LARKIN WITH PT IN TRIAGE ROOM FOR FURTHER EVALUATION.
[2021-10-10] MEDS ORDERED: KETOROLAC 30 MG/ML VIAL IM ONE (14:55)
--- NOTE | 2021-10-10 14:55 | NUR ---
PT AMB TO BED 8.
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
--- NOTE | 2021-10-10 15:06 | NUR ---
PT TAKEN TO XR VIA W/C.
--- NOTE | 2021-10-10 15:31 | NUR ---
PT TAKEN TO ER BED 8 VIA W/C.
[2021-10-10] MEDS ORDERED: NAPR-54 PO (16:12)
[2021-10-10] MEDS ORDERED: METH-1681 PO (16:12)
--- NOTE | 2021-10-10 16:32 | NUR ---
IDALMIS LARKIN AND EMT AT PT BEDSIDE FOR SPLINT.
[2021-10-10 16:45] VITALS: BP 152/70
--- NOTE | 2021-10-10 16:46 | NUR ---
Patient discharged with v/s stable. Written and verbal after care instructions given FOR CERVICAL SPRAIN, CONTUSION, WRIST FRACTURE TREATED WITH IMMOBILIZATION, AND SPRAIN REHAB and explained. Patient alert, oriented and verbalized understanding of instructions. Ambulatory with steady gait. All questions addressed prior to discharge. ID band removed. Patient advised to follow up with PMD. Rx of ROBAXIN AND NAPROXEN given. Patient educated on indication of medication including possible reaction and side effects. Opportunity to ask questions provided and answered.
== END 2021-10-10 16:46 | disposition home or self-care (01) ==
LOC: MED 14:46
DX: S62.112A Displaced fracture of triquetrum [cuneiform] bone, left wrist, initial encounter for closed fracture (principal); R07.81 Pleurodynia; M54.2 Cervicalgia; J45.909 Unspecified asthma, uncomplicated; E11.9 Type 2 diabetes mellitus without complications; K21.9 Gastro-esophageal reflux disease without esophagitis; I10 Essential (primary) hypertension; Z88.1 Allergy status to other antibiotic agents; Z88.5 Allergy status to narcotic agent; Z79.899 Other long term (current) drug therapy; W18.30XA Fall on same level, unspecified, initial encounter; Y93.89 Activity, other specified; Y92.89 Other specified places as the place of occurrence of the external cause; Y99.8 Other external cause status
CPT/HCPCS: 71101; 72050; 73110; 73130; 96372; 99284; J1885

== ENCOUNTER 2021-10-13 11:20 | Emergency (ER) | payer MEDICAID ==
[~2021-10-13] VITALS: Ht 157.5 cm; Wt 68.2 kg
[~2021-10-13 11:20] MED LIST changes: +METH-1681 PO; +NAPR-54 PO
[2021-10-13 11:32] VITALS: BP 148/71
--- NOTE | 2021-10-13 11:42 | NUR ---
Patient ambulated to bed 09 with steady/even gait.
--- NOTE | 2021-10-13 12:05 | NUR ---
51 y/o F BIB self from home c/o recheck of left thumb s/p splint application here 10/10/21. Patient A&Ox4, ambulatory, states since thumb spica application, she began experiencing numbness to L 1st digit that has worsened. Pt states change of color to thumb and numbness/loss of sensation. Pt noted with bruising, discoloration, and numbness to left thumb. Pt denies any pain at this time. Reports Naproxen at 0600 with minor relief to pain. Pt with splint removed by EMT at this time and reports it feels more normal now. Bed locked in lowest position, side rails x 1. PMH/Sx/Meds: Naproxen A: cephalexin, cortisone, morphine
--- NOTE | 2021-10-13 12:34 | NUR ---
PT'S LEFT WIRST RE-SPLINTED WITH ORHTO FIBERGLASS ULNAR GUTTER AND THUMB SPICA AND WRAPPED WITH 1" ALMAZ WRAPS X2 AND 4" ALMAZ WRAP X1. CMS WNL BEFORE AND AFTER AND PT STATES THEY CAN TOLERATE SPLINT WELL. DARIUS NOTIFIED AND APPROVED SPLINT. KOFFI MARTINEZ ALSO NOTIFIED.
--- NOTE | 2021-10-13 13:00 | NUR ---
Patient discharged with v/s stable. Written and verbal after care instructions given and explained. Patient verbalized understanding. Ambulatory with steady gait. All questions addressed prior to discharge. Advised to follow up with PMD.
== END 2021-10-13 13:00 | disposition home or self-care (01) ==
LOC: MED 11:20
DX: S62.102A Fracture of unspecified carpal bone, left wrist, initial encounter for closed fracture (principal); J45.909 Unspecified asthma, uncomplicated; E11.9 Type 2 diabetes mellitus without complications; K21.9 Gastro-esophageal reflux disease without esophagitis; I10 Essential (primary) hypertension; Z79.899 Other long term (current) drug therapy; Z79.1 Long term (current) use of non-steroidal anti-inflammatories (NSAID); Z88.1 Allergy status to other antibiotic agents; Z88.8 Allergy status to other drugs, medicaments and biological substances; Z88.5 Allergy status to narcotic agent; W18.39XA Other fall on same level, initial encounter; Y92.89 Other specified places as the place of occurrence of the external cause; Y93.89 Activity, other specified; Y99.8 Other external cause status
CPT/HCPCS: 99283

== ENCOUNTER 2021-12-24 13:35 | Emergency (ER) | payer MEDICAID ==
[~2021-12-24] VITALS: Ht 157.5 cm; Wt 69.9 kg
[2021-12-24 13:37] VITALS: BP 147/71
--- NOTE | 2021-12-24 13:43 | NUR ---
PT AMBULATED TO ER BED 8 WITH A STEADY GAIT.
--- NOTE | 2021-12-24 13:51 | NUR ---
IDALMIS GUZMANTO AT PT BEDSIDE FOR FURTHER EVALUATION.
[2021-12-24] MEDS ORDERED: FAMOTIDINE 20 MG TAB PO ONE (13:55)
[2021-12-24] MEDS ORDERED: predniSONE 20 MG TAB PO ONE (13:55)
--- NOTE | 2021-12-24 14:02 | NUR ---
51 Y/O FEMALE C/O GENERALIZED RASHES, THROAT SWELLING S/P PNEUMONIA, HEP B INJECTION X YESTERDAY. PT STATES URINE IS PINK PA MADE AWARE. DENIES FEVER/CHILLS. DENIES N/V. BLOOD SUGAR 212 AT THIS TIME. PMH: HEP B, DM, HTN, HYSTERECTOMY, APPENDECTOMY, TUBALIGATION, GALL BLADDER REMOVAL ALLERGIES: CEPHALEXIN, CORTISONE, AND MORPHINE
[2021-12-24] MEDS ORDERED: PRED20TA5 PO (15:14)
[2021-12-24] MEDS ORDERED: LORA10TA19 PO (15:14)
[2021-12-24] MEDS ORDERED: DIPH25TA53 PO (15:14)
--- NOTE | 2021-12-24 15:29 | NUR ---
Patient discharged with v/s stable. Written and verbal after care instructions given food allergy,rash and explained. Patient alert, oriented and verbalized understanding of instructions. Ambulatory with steady gait. All questions addressed prior to discharge. ID band removed. Patient advised to follow up with PMD. Rx of benadryl. claritin, deltasone given. Patient educated on indication of medication including possible reaction and side effects. Opportunity to ask questions provided and answered.
[2021-12-24 15:31] VITALS: BP 147/71
== END 2021-12-24 15:26 | disposition home or self-care (01) ==
LOC: MED 13:35
DX: T78.40XA Allergy, unspecified, initial encounter (principal); R21 Rash and other nonspecific skin eruption; J45.909 Unspecified asthma, uncomplicated; E11.9 Type 2 diabetes mellitus without complications; K21.9 Gastro-esophageal reflux disease without esophagitis; I10 Essential (primary) hypertension; Z88.1 Allergy status to other antibiotic agents; Z88.5 Allergy status to narcotic agent; Z79.84 Long term (current) use of oral hypoglycemic drugs; Z79.899 Other long term (current) drug therapy; X58.XXXA Exposure to other specified factors, initial encounter
CPT/HCPCS: 81002; 99283; J7512

== ENCOUNTER 2021-12-31 11:52 | Emergency (ER) | payer MEDICAID ==
[~2021-12-31] VITALS: Ht 157.5 cm; Wt 69.9 kg
[~2021-12-31 11:52] MED LIST changes: +DIPH25TA53 PO; +LORA10TA19 PO; +PRED20TA5 PO
[2021-12-31 11:55] VITALS: BP 126/81
--- NOTE | 2021-12-31 11:55 | NUR ---
PATIENT CAME IN ON HER OWN, PATEINT STATES "MY RASH IS GETTING WORSE" SHE WAS PREVISOULY SEEN APPROX 8 DAYS AGO HERE IN SAME ER FOR SAME PROBLEM. PATIENT STATES HER RASH HAS BECOME WORSE AND IS SPREADING ON HER FACE AND NECK. PATIENT IN NO ACUTE DISTRESS AND OR DISCOMFORT. VITALS STABLE.
--- NOTE | 2021-12-31 12:00 | NUR ---
MD AT BEDSIDE ASSESSING PATIENT.
[2021-12-31] MEDS ORDERED: DIPH1CRE19 TP (12:29)
[2021-12-31] MEDS ORDERED: TRIA60LO TP (12:29)
[2021-12-31 12:36] VITALS: BP 118/78
== END 2021-12-31 12:35 | disposition home or self-care (01) ==
LOC: MED 11:52
DX: L50.0 Allergic urticaria (principal); E11.9 Type 2 diabetes mellitus without complications; I10 Essential (primary) hypertension; K21.9 Gastro-esophageal reflux disease without esophagitis; J45.909 Unspecified asthma, uncomplicated; Z88.1 Allergy status to other antibiotic agents; Z88.5 Allergy status to narcotic agent; Z79.899 Other long term (current) drug therapy
CPT/HCPCS: 99283

== ENCOUNTER 2022-02-11 19:07 | Emergency (ER) | payer MEDICAID ==
[~2022-02-11] VITALS: Ht 157.5 cm; Wt 72.6 kg
[~2022-02-11 19:07] MED LIST changes: +DIPH1CRE19 TP; +TRIA60LO TP
[2022-02-11 19:10] VITALS: BP 152/89
[2022-02-11] MEDS ORDERED: NACL 0.9% 1,000 ML IV ONE (19:25)
[2022-02-11] MEDS ORDERED: MECLIZINE 25 MG TAB PO ONE (19:25)
--- NOTE | 2022-02-11 19:40 | NUR ---
PATIENT AMBULATED TO BED 12 WITH AT BEDSIDE
[2022-02-11 19:45] LABS: BASOPHILS % (AUTO) 0.6 % (0.0-2.0); EOSINOPHILS # (AUTO) 0.4 K/uL (0-0.4); HEMATOCRIT 41.6 % (36-48); HEMOGLOBIN 14.5 g/dL (12.0-16.0); LYMPHOCYTES # (AUTO) 3.1 K/uL (2.5-16.5); LYMPHOCYTES % (AUTO) 38.9 % (20.5-51.1); MEAN CORPUSCULAR HEMOGLOBIN 30 pg (27-31); MEAN CORPUSCULAR HGB CONC 35 g/dL (33-37); MEAN CORPUSCULAR VOLUME 84.8 fL (80-94); MONOCYTES # (AUTO) 0.4 K/uL (0.8-1.0); MONOCYTES % (AUTO) 4.6 % (1.7-9.3); NEUTROPHILS # (AUTO) 4.1 K/uL (1.8-7.7); NEUTROPHILS % (AUTO) 50.9 % (42.2-75.2); PLATELET COUNT (AUTO) 176 K/uL (140-450); RED BLOOD CELL COUNT(AUTO) 4.91 MIL/uL (4.20-5.40); RED CELL DISTRIBUTION WIDTH 13.4 % (11.6-13.7); WHITE BLOOD COUNT (AUTO) 8.1 K/uL (4.8-10.8)
--- NOTE | 2022-02-11 19:45 | NUR ---
DR. BOURNE AT BEDSIDE ASSESSING PATIENT
--- NOTE | 2022-02-11 19:50 | NUR ---
51/F BIB C/O CONSTANT DIZZINESS X 1DAY. PATIENT STATED THAT SHE HAD EXCESSIVE URINATION. PATIENT STATED "I'VE FELT LIKE THIS BEFORE WHEN EVER MY POTASSIUM DECREASES". DENIES SOB, CP, NAUSEA, VOMITING, DIARRHEA, OR CONSTIPATION AT THIS TIME. PMHX: HTN, ASTHMA, DM MEDS: JUNUVIA, ALBUTEROL ALLERGIES: CEPHALEXIN, CORTISONE, METFORMIN
[2022-02-11 19:57] LABS: ANION GAP 13.1 (8-16); CREATININE 0.7 mg/dL (0.6-1.3)
[2022-02-11 20:03] LABS: POTASSIUM 4.1 mmol/L (3.5-5.1)
--- NOTE | 2022-02-11 20:07 | NUR ---
SOL ESTABLISHED 20G R AC
--- NOTE | 2022-02-11 20:08 | NUR ---
DR. BOURNE AT BEDSIDE WITH PATIENT
--- NOTE | 2022-02-11 20:16 | NUR ---
PATIENT IN BED RESTING, TOLERATING FLUIDS WELL. BED IN LOWEST POSITION AND LOCKED. JAIDA SIDE RAILS UP FOR SAFETY. PATIENT DENIES DIZZINESS AT THIS TIME. ALL NEEDS MET.
[2022-02-11] MEDS ORDERED: SCOP0.332 TP (20:29)
[2022-02-11] MEDS ORDERED: MECL-370 PO (20:29)
--- NOTE | 2022-02-11 20:44 | NUR ---
The patient's care was reviewed and supervised by Mikala Tucker RN, RN.
--- NOTE | 2022-02-11 20:56 | NUR ---
Patient discharged with v/s stable. Written and verbal after care instructions given on Vertigo and explained. Patient alert, oriented and verbalized understanding of instructions. Ambulatory with steady gait. All questions addressed prior to discharge. ID band removed. Patient advised to follow up with PMD. Rx of Meclizine and Scopolamine given.
[2022-02-11 20:57] VITALS: BP 138/89
== END 2022-02-11 20:56 | disposition home or self-care (01) ==
LOC: MED 19:07
DX: E11.65 Type 2 diabetes mellitus with hyperglycemia (principal); R42 Dizziness and giddiness; J45.909 Unspecified asthma, uncomplicated; K21.9 Gastro-esophageal reflux disease without esophagitis; I10 Essential (primary) hypertension; Z79.899 Other long term (current) drug therapy; Z88.1 Allergy status to other antibiotic agents; Z88.8 Allergy status to other drugs, medicaments and biological substances; Z90.49 Acquired absence of other specified parts of digestive tract; Z90.710 Acquired absence of both cervix and uterus
CPT/HCPCS: 36415; 80048; 81002; 82948; 85025; 96360; 99283; J7030; J8597

== ENCOUNTER 2022-03-01 10:45 | Emergency (ER) | payer MEDICAID, OTHER ==
[~2022-03-01] VITALS: Ht 157.5 cm; Wt 71.2 kg
[~2022-03-01 10:45] MED LIST changes: +MECL-370 PO; +SCOP0.332 TP
[2022-03-01 10:55] VITALS: BP 187/92
--- NOTE | 2022-03-01 11:03 | NUR ---
RT AT BEDSIDE
--- NOTE | 2022-03-01 11:27 | NUR ---
XR AT PT BEDSIDE
--- NOTE | 2022-03-01 11:30 | NUR ---
51 Y/O FEMALE BIB SELF C/O SOB, COUGH X 1 WK. PT STATES SOB AND COUGH IS EXACERBATED AFTER EXERTION.PT STATES SHE WAS SEEN AT [facility] AND TREATED WITH ALBUTEROL. PT STATED SHE WAS NOT ABLE TO USE THE INHALER AND HAD AN ALLERGIC REACTION TO STEOIDS WHICH WERE PRESCRIBED. PT HAS AN APPT. 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 PT DENIES PAIN. PT DENIES CHEST PAIN, N/V/D. PMH: ASTHMA ALLERGY: EPHALAXIN, CORTISONE, METFORMIN MED: ALBUTEROL
[2022-03-01] MEDS ORDERED: PRED20TA5 PO (11:53)
[2022-03-01 12:36] VITALS: BP 187/92
== END 2022-03-01 12:36 | disposition home or self-care (01) ==
LOC: MED 10:45
DX: J45.901 Unspecified asthma with (acute) exacerbation (principal); F17.210 Nicotine dependence, cigarettes, uncomplicated; E11.9 Type 2 diabetes mellitus without complications; K21.9 Gastro-esophageal reflux disease without esophagitis; I10 Essential (primary) hypertension; Z71.6 Tobacco abuse counseling; Z79.899 Other long term (current) drug therapy; Z88.1 Allergy status to other antibiotic agents; Z88.8 Allergy status to other drugs, medicaments and biological substances; Z90.49 Acquired absence of other specified parts of digestive tract; Z90.710 Acquired absence of both cervix and uterus
CPT/HCPCS: 71045; 99283

== ENCOUNTER 2022-03-05 04:25 | Emergency (ER) | payer MEDICAID ==
[~2022-03-05] VITALS: Ht 165.1 cm; Wt 78.9 kg
[2022-03-05 04:28] VITALS: BP 153/103
--- NOTE | 2022-03-05 04:35 | NUR ---
PT TAKEN TO ER BED 07
[2022-03-05] MEDS ORDERED: DICYCLOMINE HCL LIQUID 20 MG, ALUMINUM HYD/MAG/SIMETHICONE 30 ML, LIDOCAINE VISCOUS 2% ... PO ONE ×3 (04:40)
[2022-03-05] MEDS ORDERED: ONDANSETRON 4 MG TAB PO ONE (04:40)
[2022-03-05] MEDS ORDERED: DICYCLOMINE HCL LIQUID 10 MG/5 ML UDC ONE (04:43)
[2022-03-05] MEDS ORDERED: ALUMINUM HYD/MAG/SIMETHICONE 30 ML UDC ONE (04:43)
--- NOTE | 2022-03-05 04:53 | NUR ---
51 y/o f bib partner for n/v/d since 2299. pt ate tacos for dinner and began to feel sick shortly after. pt has frequent episodes of vomiting. other family member ate the same thing but did not have any symptoms, SKIN IS PINK/WARM/DRY; AAOX4 WITH EVEN A PT DENIES ANY FEVER, CP, SOB, OR COUGH AT THIS TIME; VSS; PATIENT POSITIONED FOR COMFORT; HOB ELEVATED; BEDRAILS UP X2; BED DOWN. ER MADE AWARE OF PT STATUS. Addendum: 03/05/22 at 0502 by [email or web address] 51 y/o f bib partner for n/v/d since 2299. pt ate tacos for dinner and began to feel sick shortly after. pt has frequent episodes of vomiting. other family member ate the same thing but did not have any symptoms, SKIN IS PINK/WARM/DRY; AAOX4 WITH EVEN A PT DENIES ANY FEVER, CP, SOB, OR COUGH AT THIS TIME; VSS; PATIENT POSITIONED FOR COMFORT; HOB ELEVATED; BEDRAILS UP X2; BED DOWN. ER MADE AWARE OF PT STATUS. PMH:GASTROENTERITIS , APPENNDICITIS, HYSTERECTOMY, ALLERGIES, ASTHMA RX: PREDNISONE, JANUVUVIA, SPIRIVA, ALBUTEROL FLOANSE, LOSARTAN ALLERGIES: KEFLEX, CORTISONE, METFOMIN
[2022-03-05] MEDS ORDERED: ONDANSETRON 4 MG/2 ML VIAL IVP ONE ×2 (05:10→07:05)
[2022-03-05] MEDS ORDERED: LORazepam 2 MG/ML VIAL IVP ONE (05:10)
[2022-03-05] MEDS ORDERED: diphenhydrAMINE 50 MG/ML VIAL IVP ONE (05:10)
[2022-03-05] MEDS ORDERED: NACL 0.9% 1,000 ML IV ONE ×2 (05:10→08:30)
--- NOTE | 2022-03-05 05:11 | NUR ---
PT THROWING UP. DR BOURNE TO ORDER IV FLUIDS
[2022-03-05 05:39] LABS: BASOPHILS % (AUTO) 0.2 % (0.0-2.0); EOSINOPHILS % (AUTO) 0.1 % (0.0-4.0); HEMATOCRIT 44.8 % (36-48); HEMOGLOBIN 15.3 g/dL (12.0-16.0); LYMPHOCYTES # (AUTO) 1.2 K/uL (2.5-16.5); LYMPHOCYTES % (AUTO) 11.3 % (20.5-51.1); MEAN CORPUSCULAR HEMOGLOBIN 29 pg (27-31); MEAN CORPUSCULAR HGB CONC 34 g/dL (33-37); MEAN CORPUSCULAR VOLUME 84.6 fL (80-94); MONOCYTES # (AUTO) 0.5 K/uL (0.8-1.0); MONOCYTES % (AUTO) 4.9 % (1.7-9.3); NEUTROPHILS # (AUTO) 9.1 K/uL (1.8-7.7); NEUTROPHILS % (AUTO) 83.5 % (42.2-75.2); PLATELET COUNT (AUTO) 233 K/uL (140-450); RED BLOOD CELL COUNT(AUTO) 5.29 MIL/uL (4.20-5.40); RED CELL DISTRIBUTION WIDTH 13.1 % (11.6-13.7); WHITE BLOOD COUNT (AUTO) 10.9 K/uL (4.8-10.8)
[2022-03-05 05:51] LABS: ANION GAP 12.2 (8-16); CARBON DIOXIDE 26.4 mmol/L (21-32); CREATININE 0.9 mg/dL (0.6-1.3); POTASSIUM 3.6 mmol/L (3.5-5.1); TOTAL BILIRUBIN 0.6 mg/dL (0.0-1.0)
--- NOTE | 2022-03-05 06:01 | NUR ---
AFTER IV FLUIDS AND IV MEDS . PT STABLE . PAIN 2/10
[2022-03-05] MEDS ORDERED: IPRATROPIUM 0.02% 0.5 MG/2.5 ML NEBU INH ONE (07:05)
[2022-03-05] MEDS ORDERED: ALBUTEROL 0.083% 2.5 MG/3 ML NEBU INH ONE (07:05)
--- NOTE | 2022-03-05 07:17 | NUR ---
Pt report given to KOFFI GAMING. Transfer of care at this time.
--- NOTE | 2022-03-05 07:17 | NUR ---
[facility] GIVEN ORDERED ENCOURAGED PATIENT FOR INTERMITTENT DEEP BREATHING DURING THERAPY PATIENT ALSO PRESENTING WITH INTERMITTENT STRONG NPC DURING THERAPY
--- NOTE | 2022-03-05 07:22 | NUR ---
Pt report given to KOFFI GAMING. Transfer of care at this time.
--- NOTE | 2022-03-05 07:31 | NUR ---
ASSUMED CARE FOR PT.
[2022-03-05] MEDS ORDERED: DIPHENOXYLATE /ATROPINE 2.5 MG TAB PO ONE (08:30)
[2022-03-05] MEDS ORDERED: PROCHLORPERAZINE 10 MG/2 ML VIAL IVP ONE (08:30)
--- NOTE | 2022-03-05 09:30 | NUR ---
IV INFILTRATED/REMOVED. MD CIFUENTES MADE AWARE. Catheter intact and site benign TO R AC. Applied folded 4x4 gauze and tape to stop bleeding.
--- NOTE | 2022-03-05 09:40 | NUR ---
HR REMAINS ELEVATED, 110-120. DR OH MADE AWARE
--- NOTE | 2022-03-05 11:05 | NUR ---
LAB AT PT BEDSIDE
--- NOTE | 2022-03-05 11:15 | NUR ---
O2 DROPPED TO 88%, PT PLACED ON 2L NC. MD CIFUENTES MADE AWARE.
--- NOTE | 2022-03-05 11:16 | NUR ---
Mario bermeo in [facility] - 03/05/22 at 1145 by FRANK PT O2 DESAT TO 88% ROOM AIR, PT PLACED ON 2L NC
--- NOTE | 2022-03-05 11:30 | NUR ---
PT HAD ANOTHER WATERY BOWEL MOVEMENT, MADE AWARE. STOOL SAMPLE COLLECTED AND SENT TO LAB
--- NOTE | 2022-03-05 12:32 | NUR ---
PT TO BE TRANSFERED TO [facility] ROOM 2148 ACCEPTING REPORT TO KOFFI TYLER.
[2022-03-05 13:04] VITALS: BP 130/69
--- NOTE | 2022-03-05 13:04 | NUR ---
Patient to be transferred to [facility]. Is being transferred due to INSURANCE REASONS. Receiving facility has accepting physician and available space. ER physician has signed transfer form. Patient or responsible constitution party has agreed to transfer and signed form. Patient belongings inventoried and will be sent with patient. Copy of nursing notes, lab reports, EKG, Physicians Orders and X-rays to be sent with patient. Report called to JAYSON RAIN at receiving facility. [facility] ambulance service has been called for transfer. ETA is 20MIN.
== END 2022-03-05 13:04 | disposition home or self-care (01) ==
LOC: MED 04:25
DX: K52.9 Noninfective gastroenteritis and colitis, unspecified (principal); Z20.822 Contact with and (suspected) exposure to COVID-19; J45.909 Unspecified asthma, uncomplicated; E11.9 Type 2 diabetes mellitus without complications; K21.9 Gastro-esophageal reflux disease without esophagitis; I10 Essential (primary) hypertension; Z90.49 Acquired absence of other specified parts of digestive tract; Z90.710 Acquired absence of both cervix and uterus; Z79.899 Other long term (current) drug therapy; Z79.1 Long term (current) use of non-steroidal anti-inflammatories (NSAID); Z88.1 Allergy status to other antibiotic agents; Z88.8 Allergy status to other drugs, medicaments and biological substances
CPT/HCPCS: 36415; 80053; 83605; 83690; 85025; 87040; 87426; 93005; 94640; 96361; 96374; 96375; 96376; 99285; J0780; J1200; J2060; J2405; J7613; J7644; Q0162; J7030

== ENCOUNTER 2022-08-02 20:29 | Emergency (ER) | payer MEDICAID ==
[~2022-08-02] VITALS: Ht 157.5 cm; Wt 70.3 kg
[2022-08-02 21:18] VITALS: BP 156/75
--- NOTE | 2022-08-02 21:24 | NUR ---
TO LOBBY FOLLOWING TRIAGE
--- NOTE | 2022-08-02 21:54 | NUR ---
Called no show in lobby or outside.
--- NOTE | 2022-08-02 21:54 | NUR ---
PATIENT LEFT WITHOUT BEING SEEN BY DR. Staples. NO FURTHER CARE PROVIDED FOR PATIENT.
== END 2022-08-02 21:54 | disposition left against medical advice (07) ==
LOC: MED 20:29
DX: R05.9 Cough, unspecified (principal); M54.9 Dorsalgia, unspecified; Z53.21 Procedure and treatment not carried out due to patient leaving prior to being seen by health care provider

== ENCOUNTER 2023-01-21 04:45 | Emergency (ER) | payer MEDICAID ==
[~2023-01-21] VITALS: Ht 157.5 cm; Wt 70.3 kg
[2023-01-21 04:55] VITALS: BP 146/95
--- NOTE | 2023-01-21 04:55 | NUR ---
TO BED AMBULATORY
[2023-01-21] MEDS ORDERED: ONDANSETRON 4 MG/2 ML VIAL IVP ONE (05:15)
[2023-01-21] MEDS ORDERED: NACL 0.9% 1,000 ML IV ONE (05:15)
[2023-01-21 05:42] LABS: BASOPHILS % (AUTO) 0.6 % (0.0-2.0); EOSINOPHILS # (AUTO) 0.2 K/uL (0-0.4); EOSINOPHILS % (AUTO) 2.5 % (0.0-4.0); HEMATOCRIT 41.2 % (36-48); HEMOGLOBIN 14.7 g/dL (12.0-16.0); LYMPHOCYTES # (AUTO) 2.2 K/uL (2.5-16.5); LYMPHOCYTES % (AUTO) 28.8 % (20.5-51.1); MEAN CORPUSCULAR HEMOGLOBIN 29 pg (27-31); MEAN CORPUSCULAR HGB CONC 36 g/dL (33-37); MONOCYTES # (AUTO) 0.5 K/uL (0.8-1.0); MONOCYTES % (AUTO) 6.2 % (1.7-9.3); NEUTROPHILS # (AUTO) 4.7 K/uL (1.8-7.7); NEUTROPHILS % (AUTO) 61.9 % (42.2-75.2); PLATELET COUNT (AUTO) 215 K/uL (140-450); RED BLOOD CELL COUNT(AUTO) 5.08 MIL/uL (4.20-5.40); RED CELL DISTRIBUTION WIDTH 13.4 % (11.6-13.7); WHITE BLOOD COUNT (AUTO) 7.7 K/uL (4.8-10.8)
[2023-01-21 06:10] LABS: ALBUMIN 4.1 g/dL (3.4-5.0); ANION GAP 12.6 (8-16); CARBON DIOXIDE 25.7 mmol/L (21-32); CREATININE 0.8 mg/dL (0.6-1.3); POTASSIUM 3.3 mmol/L (3.5-5.1); TOTAL BILIRUBIN 1.1 mg/dL (0.0-1.0)
[2023-01-21] MEDS ORDERED: EPINEPHrine 1 MG/ML AMP ONE (06:42)
--- NOTE | 2023-01-21 06:42 | NUR ---
PT HAVING THROAT COMPLAINTS FEELING LIKE IT WOULD CLOSE UP. ER MD AT BEDSIDE TO WITNESS, ORDER OF 0.5MG OF EPI IM. PER PT WAS ALLERGIC TO ZOFRAN IN THE PAST AND HAS NOT HAD ANY RX UNTIL TODAY.
[2023-01-21] MEDS ORDERED: EPINEPHrine 1 MG/ML AMP IM ONE (07:10)
--- NOTE | 2023-01-21 07:16 | NUR ---
Pt report given to CHARIS RAIN. Transfer of care at this time.
[2023-01-21 07:38] LABS: APPEARANCE,URINE CLEAR (CLEAR); BILIRUBIN,URINE NEGATIVE (NEGATIVE); BLOOD, URINE 1+ (NEGATIVE); COLOR,URINE YELLOW (YELLOW); LEUKOCYTE ESTERASE ,URINE NEGATIVE (NEGATIVE); NITRITE, URINE NEGATIVE (NEGATIVE); UGLUCOSE NEGATIVE (NEGATIVE)
[2023-01-21 08:04] LABS: RBC,URINE 11-20 (MOD) /HPF (0-5); WBC,URINE 0-5 /HPF (0-5)
--- NOTE | 2023-01-21 08:10 | NUR ---
BEDPAN OFFERED TO PT PER REQUESTS.
[2023-01-21] MEDS ORDERED: FAMOTIDINE 20 MG TAB PO ONE (08:35)
[2023-01-21] MEDS ORDERED: CIPR500T4 PO (09:20)
--- NOTE | 2023-01-21 09:38 | NUR ---
PT WAS ASSESSED BY DR. JEFFREY THEN DC'D HOME. DAUGHTER CAME TO PICKUP PT. Patient discharged with v/s stable. Written and verbal after care instructions given and explained. Patient alert, oriented and verbalized understanding of instructions. Ambulatory with steady gait. All questions addressed prior to discharge. ID band removed. Patient advised to follow up with PMD. Rx of CIPRO given. Patient educated on indication of medication including possible reaction and side effects. Opportunity to ask questions provided and answered.
[2023-01-21 09:40] VITALS: BP 133/67
== END 2023-01-21 09:40 | disposition home or self-care (01) ==
LOC: MED 04:45
DX: N39.0 Urinary tract infection, site not specified (principal); T78.2XXA Anaphylactic shock, unspecified, initial encounter; J45.909 Unspecified asthma, uncomplicated; I10 Essential (primary) hypertension; E11.9 Type 2 diabetes mellitus without complications; K21.9 Gastro-esophageal reflux disease without esophagitis; Z88.5 Allergy status to narcotic agent; Z88.8 Allergy status to other drugs, medicaments and biological substances; Z79.4 Long term (current) use of insulin; Z79.899 Other long term (current) drug therapy
CPT/HCPCS: 36415; 80053; 81001; 83690; 85025; 87086; 96361; 96372; 96374; 99284; J0171; J2405; J7030

== ENCOUNTER 2023-02-04 22:59 | Inpatient (IN) | payer MEDICAID ==
[~2023-02-04] VITALS: Ht 157.5 cm; Wt 70.3 kg
[~2023-02-04 22:59] MED LIST changes: +CIPR500T4 PO
[2023-02-04 23:00] VITALS: BP 173/90
--- NOTE | 2023-02-04 23:03 | NUR ---
TO LOBBY A/W BED AMBULATORY
--- NOTE | 2023-02-05 01:09 | NUR ---
PT TO 9
--- NOTE | 2023-02-05 01:15 | NUR ---
RECEIVED IN BED 9 WITH C/O HIGH BP STARTED AN HOUR AGO, WITH CHEST PAIN AND SOB
[2023-02-05] MEDS ORDERED: ONDANSETRON 4 MG ODT PO ONE (01:45)
[2023-02-05] MEDS ORDERED: DICYCLOMINE HCL LIQUID 20 MG, ALUMINUM HYD/MAG/SIMETHICONE 30 ML, LIDOCAINE VISCOUS 2% ... PO ONE ×3 (01:45)
[2023-02-05] MEDS ORDERED: ALUMINUM HYD/MAG/SIMETHICONE 30 ML UDC ONE (01:51)
[2023-02-05] MEDS ORDERED: DICYCLOMINE HCL LIQUID 10 MG/5 ML UDC ONE (01:51)
[2023-02-05 02:06] LABS: BASOPHILS # (AUTO) 0.1 K/uL (0.00-0.22); BASOPHILS % (AUTO) 0.8 % (0.0-2.0); EOSINOPHILS # (AUTO) 0.2 K/uL (0-0.4); EOSINOPHILS % (AUTO) 2.1 % (0.0-4.0); HEMATOCRIT 43.1 % (36-48); HEMOGLOBIN 14.9 g/dL (12.0-16.0); LYMPHOCYTES # (AUTO) 2.1 K/uL (2.5-16.5); LYMPHOCYTES % (AUTO) 24.9 % (20.5-51.1); MEAN CORPUSCULAR HEMOGLOBIN 29 pg (27-31); MEAN CORPUSCULAR HGB CONC 35 g/dL (33-37); MONOCYTES # (AUTO) 0.4 K/uL (0.8-1.0); MONOCYTES % (AUTO) 4.2 % (1.7-9.3); NEUTROPHILS # (AUTO) 5.8 K/uL (1.8-7.7); PLATELET COUNT (AUTO) 213 K/uL (140-450); RED BLOOD CELL COUNT(AUTO) 5.13 MIL/uL (4.20-5.40); RED CELL DISTRIBUTION WIDTH 13.5 % (11.6-13.7); WHITE BLOOD COUNT (AUTO) 8.6 K/uL (4.8-10.8)
[2023-02-05] MEDS ORDERED: MECLIZINE 25 MG TAB PO ONE (02:15)
[2023-02-05 02:23] LABS: ANION GAP 12.7 (8-16); ASPARTATE AMINOTRANSFERASE 12 U/L (15-37); CARBON DIOXIDE 28.7 mmol/L (21-32); CHLORIDE 104 mmol/L (98-107); CREATININE 0.8 mg/dL (0.6-1.3); GFR ARICAN-AMERICAN 96 mL/min (>90); GLUCOSE 150 mg/dL (74-106); LIPASE 91 U/L (73-393); POTASSIUM 3.4 mmol/L (3.5-5.1); SODIUM SERUM 142 mmol/L (136-145); TOTAL BILIRUBIN 0.5 mg/dL (0.0-1.0); UREA NITROGEN, BLOOD 11 mg/dL (7-18)
[2023-02-05] MEDS ORDERED: NITROGLYCERIN 0.4 MG TAB SL ONE ×2 (02:30→03:37)
[2023-02-05] MEDS ORDERED: ASPIRIN 81 MG TAB.CHEW PO ONE (02:30)
--- NOTE | 2023-02-05 02:41 | NUR ---
DIDI COLLECTED AND TAKEN TO LAB.
[2023-02-05] MEDS ORDERED: ASPIRIN 81 MG TAB.CHEW ONE (03:37)
[2023-02-05] MEDS ORDERED: ACETAMINOPHEN 325 MG TAB PO PRN (05:00)
[2023-02-05] MEDS ORDERED: ZOLPIDEM 5 MG TAB PO PRN (05:00)
[2023-02-05] MEDS ORDERED: NITROGLYCERIN 0.4 MG TAB SL PRN (05:00)
[2023-02-05] MEDS ORDERED: MORPHINE SULFATE 2 MG/ML SYR IVP PRN ×2 (05:00)
[2023-02-05] MEDS ORDERED: LORazepam 1 MG TAB PO PRN (05:00)
--- NOTE | 2023-02-05 05:02 | NUR ---
2ND RUSSELL COLLECTED AND SENT TO LAB
[2023-02-05 06:00] VITALS: BP 163/59
[2023-02-05] MEDS: amLODIPine 5 MG TAB PO SCH ×2 (07:00→09:05)
[2023-02-05] MEDS: SODIUM CHLORIDE FLUSH 10 ML SYR IVF SCH ×2 (07:00→13:00)
--- NOTE | 2023-02-05 08:00 | NUR ---
Received pt to room 107 via gurney from ER. Received report from ER nurse. Pt has no complaints of pain or discomfort upon transfer to floor. PIV patent. No complaints of chest pain, SOB, or dizziness. Admission assessment completed. Will continue to monitor.
[2023-02-05 08:19] LABS: PROTHROMBIN TIME 11.2 secs (10.8-13.4)
[2023-02-05 08:26] LABS: AMYLASE 29 U/L (25-115); LIPASE 74 U/L (73-393)
--- NOTE | 2023-02-05 08:26 | NUR ---
Patient will be admitted to care of . Admited to Tele. Will go to room 107B. Belongings list completed. Report to Humberto RAIN.
[2023-02-05] MEDS ORDERED: IRBESARTAN 300 MG PO SCH (12:40)
[2023-02-05] MEDS ORDERED: ACETAMINOPHEN EXTRA STRENGTH 500 MG TAB PO PRN (12:40)
[2023-02-05] MEDS ORDERED: amLODIPine 5 MG TAB PO SCH (12:40)
[2023-02-05] MEDS ORDERED: POTASSIUM CHLORIDE 10 MEQ in LACTATED RINGERS 1,000 ML IV SCH (12:45)
[2023-02-05] MEDS ORDERED: LOSARTAN 50 MG TAB PO SCH (13:00)
[2023-02-05] MEDS ORDERED: POTASSIUM CHLORIDE 10 MEQ TABER PO SCH (13:00)
[2023-02-05] MEDS ORDERED: hydrALAZINE 25 MG TAB PO PRN (13:05)
[2023-02-05] MEDS ORDERED: EPIN1KIT31 IM (13:27)
[2023-02-05] MEDS ORDERED: HYDR-4420 PO (13:28)
== END 2023-02-05 17:19 | disposition home or self-care (01) | DRG 243 ==
LOC: MED 22:59 → MTU 02-05 05:03
PROVIDERS: ADMIT Hospitalist; ATTEND Hospitalist
DX: K21.9 Gastro-esophageal reflux disease without esophagitis (principal); E11.9 Type 2 diabetes mellitus without complications; E78.5 Hyperlipidemia, unspecified; J45.909 Unspecified asthma, uncomplicated; I10 Essential (primary) hypertension; Z20.822 Contact with and (suspected) exposure to COVID-19; Z79.899 Other long term (current) drug therapy; Z88.8 Allergy status to other drugs, medicaments and biological substances; Z82.49 Family history of ischemic heart disease and other diseases of the circulatory system; Z88.1 Allergy status to other antibiotic agents; Z83.3 Family history of diabetes mellitus; Z79.1 Long term (current) use of non-steroidal anti-inflammatories (NSAID)
CPT/HCPCS: 36415; 70450; 71045; 80053; 82150; 83690; 84484; 85025; 85610; 85730; 93005; 99291; J8597; Q0092; Q0162

== ENCOUNTER 2023-07-18 19:13 | Emergency (ER) | payer MEDICAID ==
[~2023-07-18] VITALS: Ht 157.5 cm; Wt 73.9 kg
[~2023-07-18 19:13] MED LIST changes: +EPIN1KIT31 IM; +HYDR-4420 PO
[2023-07-18 19:23] VITALS: BP 129/76; PULSE 72; RESP 16; TEMP 98.1; O2SAT 98
[2023-07-18 19:40] VITALS: BP 129/76; PULSE 79; RESP 20; TEMP 97.2; O2SAT 100
[2023-07-18] MEDS: NACL 0.9% 1,000 ML IV ONE (20:15)
== END 2023-07-18 21:45 | disposition home or self-care (01) ==
LOC: MED 19:13
DX: E11.65 Type 2 diabetes mellitus with hyperglycemia (principal); I10 Essential (primary) hypertension; J45.909 Unspecified asthma, uncomplicated; K21.9 Gastro-esophageal reflux disease without esophagitis; Z88.1 Allergy status to other antibiotic agents; Z88.8 Allergy status to other drugs, medicaments and biological substances; Z79.4 Long term (current) use of insulin; Z79.899 Other long term (current) drug therapy
CPT/HCPCS: 82948; 96360; 99283; J7030

== ENCOUNTER 2024-05-06 15:25 | Emergency (ER) | payer MEDICAID ==
[~2024-05-06] VITALS: Ht 160 cm; Wt 72.6 kg
[~2024-05-06 15:25] MED LIST changes: -HYDR-4420 PO; +HYDR-5856 PO; -IRBE300T26 PO; +IRBE300T36 PO; +NAPR-337 PO; -NAPR-54 PO
[2024-05-06 15:53] VITALS: BP 150/72; PULSE 70; RESP 16; TEMP 98.1; O2SAT 99
[2024-05-06] MEDS ORDERED: IBUP-2213 PO (16:21)
[2024-05-06] MEDS: LIDOCAINE MPF 1% 10 MG/ML VIAL INJ ONE (16:56)
== END 2024-05-06 16:23 | disposition home or self-care (01) ==
LOC: MED 15:25
DX: L60.0 Ingrowing nail (principal); J45.909 Unspecified asthma, uncomplicated; E11.9 Type 2 diabetes mellitus without complications; K21.9 Gastro-esophageal reflux disease without esophagitis; I10 Essential (primary) hypertension; Z79.1 Long term (current) use of non-steroidal anti-inflammatories (NSAID); Z79.2 Long term (current) use of antibiotics; Z79.899 Other long term (current) drug therapy; Z88.1 Allergy status to other antibiotic agents; Z88.8 Allergy status to other drugs, medicaments and biological substances
CPT/HCPCS: 99282

== ENCOUNTER 2024-06-23 15:35 | Emergency (ER) | payer MEDICAID ==
[~2024-06-23] VITALS: Ht 157.5 cm; Wt 73.2 kg
[~2024-06-23 15:35] MED LIST changes: +IBUP-2213 PO
[2024-06-23 15:51] VITALS: BP 154/64; PULSE 79; RESP 17; TEMP 97.2; O2SAT 98
[2024-06-23 16:06] VITALS: PULSE 85; RESP 20; O2SAT 98
[2024-06-23] MEDS: ALBUTEROL SULFATE/IPRATROPIU 3 ML SOL IH ONE (16:06)
[2024-06-23] MEDS: ALBUTEROL 0.083% 2.5 MG/3 ML NEBU INH ONE (16:09)
[2024-06-23 16:27] LABS: BASOPHILS # (AUTO) 0.1 K/uL (0.00-0.22); BASOPHILS % (AUTO) 0.4 % (0.0-2.0); EOSINOPHILS # (AUTO) 0.1 K/uL (0-0.4); HEMATOCRIT 42.8 % (36-48); HEMOGLOBIN 14.5 g/dL (12.0-16.0); LYMPHOCYTES % (AUTO) 17.4 % (20.5-51.1); MEAN CORPUSCULAR HEMOGLOBIN 28 pg (27-31); MEAN CORPUSCULAR HGB CONC 34 g/dL (33-37); MEAN CORPUSCULAR VOLUME 83.3 fL (80-94); MONOCYTES # (AUTO) 0.7 K/uL (0.8-1.0); MONOCYTES % (AUTO) 6.3 % (1.7-9.3); NEUTROPHILS # (AUTO) 8.5 K/uL (1.8-7.7); NEUTROPHILS % (AUTO) 74.9 % (42.2-75.2); PLATELET COUNT (AUTO) 263 K/uL (140-450); RED BLOOD CELL COUNT(AUTO) 5.13 MIL/uL (4.20-5.40); RED CELL DISTRIBUTION WIDTH 13.3 % (11.6-13.7); WHITE BLOOD COUNT (AUTO) 11.3 K/uL (4.8-10.8)
[2024-06-23] MEDS: PROCHLORPERAZINE 10 MG/2 ML VIAL IM ONE (16:40)
[2024-06-23 16:47] LABS: CARBON DIOXIDE 27.3 mmol/L (21-32); CREATININE 1.2 mg/dL (0.6-1.3); POTASSIUM 5.3 mmol/L (3.5-5.1)
[2024-06-23 17:16] LABS: INR 1.05 (0.8-1.2); PARTIAL THROMBOPLASTIN TIME 23.2 secs (22-35.6)
[2024-06-23] MEDS ORDERED: ATA25 PO (18:06)
[2024-06-23] MEDS: LORazepam 1 MG TAB PO ONE (18:08)
[2024-06-23] MEDS: LORazepam 0.5 MG TAB PO ONE (18:10)
[2024-06-23 18:22] VITALS: BP 111/58; PULSE 83; RESP 16; TEMP 97.4; O2SAT 98
== END 2024-06-23 18:22 | disposition home or self-care (01) ==
LOC: MED 15:35
DX: J98.01 Acute bronchospasm (principal); F41.9 Anxiety disorder, unspecified; E11.9 Type 2 diabetes mellitus without complications; K21.9 Gastro-esophageal reflux disease without esophagitis; I10 Essential (primary) hypertension; Z79.899 Other long term (current) drug therapy; Z88.6 Allergy status to analgesic agent; Z88.5 Allergy status to narcotic agent; Z88.1 Allergy status to other antibiotic agents; Z88.8 Allergy status to other drugs, medicaments and biological substances
CPT/HCPCS: 36415; 71045; 80048; 83880; 84484; 85025; 85610; 85730; 93005; 94640; 96372; 99285; J0780; J7613; Q0092

== ENCOUNTER 2024-07-11 16:13 | Emergency (ER) | payer MEDICAID ==
[~2024-07-11] VITALS: Ht 157.5 cm; Wt 73.0 kg
[~2024-07-11 16:13] MED LIST changes: -ACET-10509 PO; +ACET500T99 PO; +ATA25 PO; -CIPR500T4 PO; -DIPH1CRE19 TP; -DIPH25TA53 PO; -HYDR-5856 PO; -IBUP-2213 PO; -LORA10TA19 PO; -MECL-370 PO; -METH-1681 PO; -NAPR-337 PO; -PRED20TA5 PO; -SCOP0.332 TP; -[UNRECOGNIZED DRUG - CODE] PO
[2024-07-11 16:34] VITALS: BP 126/79; PULSE 75; RESP 18; TEMP 98.4; O2SAT 95
[2024-07-11] MEDS: CYCLOBENZAPRINE 10 MG TAB PO ONE (17:45)
[2024-07-11] MEDS: ACETAMINOPHEN EXTRA STRENGTH 500 MG TAB PO ONE (17:45)
[2024-07-11] MEDS: LIDOCAINE 5% 1 EA PATCH TP ONE (17:46)
[2024-07-11] MEDS: KETOROLAC 30 MG/ML VIAL IM ONE (17:47)
[2024-07-11] MEDS ORDERED: LID5T TP (18:39)
[2024-07-11] MEDS ORDERED: CYCL-711 PO (18:39)
== END 2024-07-11 18:52 | disposition home or self-care (01) ==
LOC: MED 16:13
DX: S43.401A Unspecified sprain of right shoulder joint, initial encounter (principal); M54.12 Radiculopathy, cervical region; J45.909 Unspecified asthma, uncomplicated; E11.9 Type 2 diabetes mellitus without complications; K21.9 Gastro-esophageal reflux disease without esophagitis; I10 Essential (primary) hypertension; Z79.899 Other long term (current) drug therapy; Z88.8 Allergy status to other drugs, medicaments and biological substances; Z88.1 Allergy status to other antibiotic agents; X58.XXXA Exposure to other specified factors, initial encounter; Y92.89 Other specified places as the place of occurrence of the external cause; Y93.89 Activity, other specified; Y99.8 Other external cause status
CPT/HCPCS: 73030; 82948; 96372; 99283; J1885